=== PATIENT | female | born 1990 | race Two or more races ===

== ENCOUNTER 2021-10-30 18:27 | Emergency (ER) | payer OTHER ==
[~2021-10-30] VITALS: Ht 149.9 cm; Wt 54.0 kg
[~2021-10-30 18:27] MED LIST: AMOX1TAB12 PO; ZOVIRAX15 GM TP
== END 2021-10-30 20:13 | disposition home or self-care (01) ==
LOC: ER 18:27
DX: J02.9 Acute pharyngitis, unspecified (principal); K12.1 Other forms of stomatitis